=== PATIENT | female | born 1965 | race Hispanic/Latino ===

== ENCOUNTER 2016-06-15 11:36 | Emergency (ER) | payer BC ==
[2016-06-15 12:07] VITALS: O2SAT 97
[2016-06-15] MEDS ORDERED: Sodium Chloride 0.9% 1,000 ML IV ONE (12:54)
--- NOTE | 2016-06-15 12:58 | C.PDOC ---
History Of Present Illness The patient, a 50 y/o female whose PMHx includes Kidney Stones and Diverticulitis, presents to the ED for evaluation of abdominal pain and right- sided flank pain which began around 1 week ago. Patient also reports vomiting and diarrhea. She denies fever, chills. Time Seen by Provider: 06/15/16 12:48 Chief Complaint (Nursing): Abdominal Pain History Per: Patient History/Exam Limitations: no limitations Onset/Duration Of Symptoms: Other (around 1 week ) Current Symptoms Are (Timing): Still Present Quality Of Discomfort: "Pain" Associated Symptoms: Vomiting, Diarrhea. denies: Fever, Chills Additional History Per: Patient Past Medical History Reviewed: Historical Data, Nursing Documentation, Vital Signs Vital Signs: Last Vital Signs Temp 98.1 F 06/15/16 15:39 Pulse 88 06/15/16 15:39 Resp 20 06/15/16 15:39 BP 145/88 06/15/16 15:39 Pulse Ox 97 06/15/16 15:06 - Medical History PMH: Back Problems, Diverticulitis, HTN, Kidney Stones, Migraine Denies: Chronic Kidney Disease Surgical History: Back Surgery Family History: States: Unknown Family Hx - Social History Hx Tobacco Use: No Hx Alcohol Use: No Hx Substance Use: No - Immunization History Hx Tetanus Toxoid Vaccination: No Hx Influenza Vaccination: No Hx Pneumococcal Vaccination: No Review Of Systems Except As Marked, All Systems Reviewed And Found Negative. Constitutional: Negative for: Fever, Chills Gastrointestinal: Positive for: Vomiting, Abdominal Pain, Diarrhea, Other (+ right flank pain ) Physical Exam - Physical Exam Appears: Non-toxic, No Acute Distress Skin: Normal Color, Warm, Dry Head: Atraumatic Eye(s): bilateral: Normal Inspection, EOMI Oral Mucosa: Moist Neck: Normal ROM, Supple Chest: Symmetrical, No Deformity, No Tenderness Cardiovascular: Rhythm Regular, No Murmur Respiratory: Normal Breath Sounds, No Rales, No Rhonchi, No Wheezing Back: No Vertebral Tenderness, No Paraspinal Tenderness, Other (+right flank tenderness ) Extremity: Normal ROM, Capillary Refill (less than 2 seconds ) Neurological/Psych: Oriented x3, Normal Speech, Normal Cognition Gait: Steady ED Course And Treatment - Laboratory Results Result Diagrams: 06/15/16 14:06 06/15/16 14:06 Lab Interpretation: Normal Urine POC: Negative O2 Sat by Pulse Oximetry: 97 (on RA) Pulse Ox Interpretation: Normal - CT Scan/US No standard instances CT/US Interpretation: LOWER THORAX: Unremarkable. LIVER: Mild hepatomegaly. No evidence of acute pathology. GALLBLADDER AND BILE DUCTS: Unremarkable. PANCREAS: Small size pancreas is again noted. SPLEEN: Unremarkable. ADRENALS : Unremarkable. No mass. KIDNEYS AND URETERS: Unremarkable. No hydronephrosis. No solid mass. VASCULATURE: Unremarkable. No aortic aneurysm. BOWEL: Colonic diverticulosis are again seen without evidence of diverticulitis. No evidence of small bowel obstruction. APPENDIX: No evidence of appendicitis. PERITONEUM: Unremarkable. No free fluid. No free air. LYMPH NODES: Unremarkable. No enlarged lymph nodes. BLADDER: Unremarkable. REPRODUCTIVE: Unremarkable. BONES: No acute fracture. OTHER FINDINGS: Again seen is focal spiculated density at the midline anterior lower abdominal wall may represent scar tissue. The possibility of endometrioma is not totally excluded. Please correlate clinically. IMPRESSION: No evidence of acute pathology in the abdomen and pelvis. No evidence of significant interval change compared to the previous study. Colonic diverticulosis without evidence of diverticulitis. Re- demonstration of spiculated focal density at the midline anterior lower abdominal wall may represent scar tissue from prior surgery. Progress Note: labs and CT A/P ordered and reviewed. Patient received IV Fluids. treated with morphine 2 mg IV. On re-evaluation abdomen soft non- tender, discharged in stable condition Reassessment Condition: Improved Disposition Counseled Patient/Family Regarding: Studies Performed, Diagnosis, Need For Followup, Rx Given - Disposition Referrals: [facility] [Outside] [facility] [Outside] Disposition: HOSPITALIZED Disposition Time: 15:20 Condition: IMPROVED Additional Instructions: Follow up with PMD for further evaluation Prescriptions: Dicyclomine [Bentyl] 20 mg PO Q3 PRN #12 tab PRN Reason: Pain, Moderate (4-7) Instructions: Abdominal Pain (ED) - POA Present On Arrival: None - Clinical Impression Clinical Impression: Diarrhea, Vomiting, Abdominal pain - PA / MICROBIOLOGICAL LABORATORY TECHNICIAN / Resident Statement MD/DO has reviewed & agrees with the documentation as recorded. - Scribe Statement The provider has reviewed the documentation as recorded by the Scribe (Leslee Rivera) All medical record entries made by the Scribe were at my direction and personally dictated by me. I have reviewed the chart and agree that the record accurately reflects my personal performance of the history, physical exam, medical decision making, and the department course for this patient. I have also personally directed, reviewed, and agree with the discharge instructions and disposition.
[2016-06-15 14:00] LABS: URINE BACTERIA RARE (<OCC); URINE BILIRUBIN NEGATIVE (NEGATIVE); URINE BLOOD NEGATIVE (NEGATIVE); URINE COLOR Straw (YELLOW); URINE GLUCOSE (UA) NORMAL (Normal); URINE KETONE NEGATIVE (NEGATIVE); URINE LEUKOCYTE ESTERASE NEG Leu/uL (Negative); URINE PROTEIN NEGATIVE (NEGATIVE); URINE UROBILINOGEN NORMAL mg/dL (0.2-1.0)
[2016-06-15 14:13] LABS: BASO % 0.6 % (0.0-2.0); EOS # 0.1 K/uL (0.0-0.7); EOS % 0.7 % (0.0-4.0); HEMATOCRIT 43.9 % (34.0-47.0); LYMPH # 2.3 K/uL (1.0-4.3); LYMPH % 28.4 % (20.0-40.0); MEAN CORPUSCULAR HEMOGLOBIN 29.2 pg (27.0-31.0); MEAN CORPUSCULAR HGB CONC 32.5 g/dL (33.0-37.0); MEAN PLATELET VOLUME 9.2 fL (7.2-11.7); MONO # 0.4 K/uL (0.0-0.8); MONO % 5.4 % (0.0-10.0); RED CELL DISTRIBUTION WIDTH 14.3 % (11.5-14.5); WHITE BLOOD COUNT 8.1 K/uL (4.8-10.8)
[2016-06-15 14:20] LABS: CHLORIDE 101 mmol/L (98-107); POTASSIUM 4.7 mmol/L (3.6-5.2); SODIUM 141 mmol/L (132-148)
[2016-06-15 14:23] LABS: ALB/GLOB RATIO 1.2 (1.0-2.1); ALKALINE PHOSPHATASE 92 U/L (38-126); ALT/SGPT 28 U/L (9-52); AST/SGOT 18 U/L (14-36); BILIRUBIN,TOTAL 0.6 mg/dL (0.2-1.3); BLOOD UREA NITROGEN 10 mg/dL (7-17); CALCIUM 9.5 mg/dl (8.6-10.4); CARBON DIOXIDE 28 mmol/L (22-30); GFR AFRICAN-AMERICAN > 60; GLUCOSE,RANDOM 122 mg/dL (65-105); TOTAL PROTEIN 7.3 g/dL (6.3-8.3)
--- NOTE | 2016-06-15 14:48 | CT ---
PROCEDURE: CT Abdomen and Pelvis without intravenous contrast HISTORY: Pain COMPARISON: Comparison is made to the previous study dated 11/09/2013 TECHNIQUE: Axial and reformatted coronal and sagittal CT images of the abdomen and pelvis were obtained without IV or oral contrast administration.. Contrast Dose: 0 Radiation dose: Total exam DLP = 1226.38 mGy-cm. FINDINGS: LOWER THORAX: Unremarkable. LIVER: Mild hepatomegaly. No evidence of acute pathology. GALLBLADDER AND BILE DUCTS: Unremarkable. PANCREAS: Small size pancreas is again noted. SPLEEN: Unremarkable. ADRENALS: Unremarkable. No mass. KIDNEYS AND URETERS: Unremarkable. No hydronephrosis. No solid mass. VASCULATURE: Unremarkable. No aortic aneurysm. BOWEL: Colonic diverticulosis are again seen without evidence of diverticulitis. No evidence of small bowel obstruction. APPENDIX: No evidence of appendicitis. PERITONEUM: Unremarkable. No free fluid. No free air. LYMPH NODES: Unremarkable. No enlarged lymph nodes. BLADDER: Unremarkable. REPRODUCTIVE: Unremarkable. BONES: No acute fracture. OTHER FINDINGS: Again seen is focal spiculated density at the midline anterior lower abdominal wall may represent scar tissue. The possibility of endometrioma is not totally excluded. Please correlate clinically. IMPRESSION: No evidence of acute pathology in the abdomen and pelvis. No evidence of significant interval change compared to the previous study. Colonic diverticulosis without evidence of diverticulitis. Re- demonstration of spiculated focal density at the midline anterior lower abdominal wall may represent scar tissue from prior surgery.
[2016-06-15 15:41] VITALS: BP 145/88; PULSE 88; RESP 20; TEMP 98.1
== END 2016-06-15 15:00 | disposition home or self-care (01) ==
LOC: C.ER 11:36
DX: R10.9 Unspecified abdominal pain (principal); R19.7 Diarrhea, unspecified; R11.10 Vomiting, unspecified
CPT/HCPCS: 74176; 80053; 81001; 83690; 84703; 85025; 96374; 99285; J2270; J7040

== ENCOUNTER 2018-01-15 09:07 | Emergency (ER) | payer BC ==
[2018-01-15 09:20] VITALS: BP 153/86; PULSE 68; RESP 18; TEMP 98.1; O2SAT 97
--- NOTE | 2018-01-15 09:37 | C.PDOC ---
History Of Present Illness 52 y/o female presents to the ER complaining of left hip pain which has been present for the past 3 months. Patient states that she does have PMD but she did not discuss her symptoms with her PMD.Denies having direct trauma, falls, injuries, weakness, and numbness. Of note, patient became slightly agitated during interview, she insisted that she was going to leave and see her PMD. Time Seen by Provider: 01/15/18 09:21 Chief Complaint (Nursing): Hip Pain History Per: Patient History/Exam Limitations: no limitations Onset/Duration Of Symptoms: Days Current Symptoms Are (Timing): Still Present Severity: Moderate Past Medical History Reviewed: Historical Data, Nursing Documentation, Vital Signs Vital Signs: Last Vital Signs Temp 98.1 F 01/15/18 09:16 Pulse 68 01/15/18 09:16 Resp 18 01/15/18 09:16 BP 153/86 H 01/15/18 09:16 Pulse Ox 97 01/15/18 09:16 - Medical History PMH: Back Problems, Diverticulitis, HTN, Kidney Stones, Migraine, Chronic Kidney Disease Surgical History: Back Surgery Family History: States: No Known Family Hx - Social History Hx Tobacco Use: No Hx Alcohol Use: No Hx Substance Use: No - Immunization History Hx Tetanus Toxoid Vaccination: No Hx Influenza Vaccination: No Hx Pneumococcal Vaccination: No Review Of Systems Review Of Systems: ROS cannot be obtained secondary to pt's inabilty to answer questions. Skin: Positive for: Other (chronic left hip pain, patient did not answer any other questions. ) Physical Exam - Physical Exam Appears: Non-toxic, Other (awake,alert) Skin: Normal Color, Warm, Dry Head: Normacephalic Extremity: Other (ambulating well, able to bear weight ) Neurological/Psych: Oriented x3, Normal Speech Gait: Steady Additional Physical Exam Comments: Physical Exam is limited because patient wanted to be discharged and follow up with her PMD. ED Course And Treatment O2 Sat by Pulse Oximetry: 97 (RA) Pulse Ox Interpretation: Normal Medical Decision Making Medical Decision Making: Patient presented accompanying her friend. She chose to be seen as a patient as well, for chronic hip pain, no associated trauma. Patient informed that chronic , non traumatic pain is best managed by her primary care provider. Patient took offence to this although no offence was intended. patient did not want to proceed, she said she would follow up with her MD. Patient has been discharged and instructed to follow up with her PMD. Disposition Counseled Patient/Family Regarding: Diagnosis, Need For Followup - Disposition Disposition: HOME/ ROUTINE Disposition Time: 09:36 Condition: STABLE Instructions: Hip Pain (DC) Forms: [facility] (Vietnamese), General Discharge Instructions - Clinical Impression Clinical Impression: Hip pain, Arthritis - Scribe Statement The provider has reviewed the documentation as recorded by the Darya Anguiano Provider Attestation: All medical record entries made by the Darya were at my direction and p ersonally dictated by me. I have reviewed the chart and agree that the record accurately reflects my personal performance of the history, physical exam, medical decision making, and the department course for this patient. I have also personally directed, reviewed, and agree with the discharge instructions and disposition.
== END 2018-01-15 09:50 | disposition home or self-care (01) ==
LOC: C.ER 09:07
DX: M13.851 Other specified arthritis, right hip (principal); M25.552 Pain in left hip